=== PATIENT | male | born 1955 | race Caucasian/White ===

== ENCOUNTER → 2016-11-19 17:50 | Outpatient (CLI) | payer OTHER ==
[2016-03-15 05:53] VITALS: BMI 37.8
[~2016-11-19 17:50] MED LIST: ADIPEX-P37.5 M1 PO; AVAPRO300 MG PO; HYDROCODONE-APA1 TAB PO; NORVASC5 MG PO; PROTONIX40 MG PO; ZANTAC150 MG PO
[2016-11-22 05:15] LABS: TESTOSTERONE - FREE 4.2 pg/mL (6.6-18.1); TESTOSTERONE - SERUM 322 ng/dL (348-1197)
== END | disposition home or self-care (01) ==
LOC: D.LAB 17:50
PROVIDERS: Family Medicine
DX: Z00.00 Encounter for general adult medical examination without abnormal findings (principal)

== ENCOUNTER → 2017-05-20 17:40 | Outpatient (CLI) | payer OTHER ==
[2016-03-15 05:53] VITALS: BMI 37.8
== END | disposition home or self-care (01) ==
LOC: D.LABREF 17:40
DX: R53.81 Other malaise (principal)

== ENCOUNTER → 2019-01-27 18:58 | Outpatient (CLI) | payer OTHER ==
[2016-03-15 05:53] VITALS: BMI 37.8
[2019-02-03 03:08] LABS: RMSF IGM 0.34 index (0.00-0.89)
== END | disposition home or self-care (01) ==
LOC: D.LABREF 18:58
PROVIDERS: ATTEND Student in an Organized Health Care Education/Training Program
DX: A77.0 Spotted fever due to Rickettsia rickettsii (principal)

== ENCOUNTER → 2020-06-28 08:21 | Outpatient (CLI) | payer OTHER, MEDICARE ==
[2016-03-15 05:53] VITALS: BMI 37.8
== END | disposition home or self-care (01) ==
LOC: D.HCCARDIO 08:21
PROVIDERS: ATTEND Internal Medicine Cardiovascular Disease
DX: R06.09 Other forms of dyspnea (principal)

== ENCOUNTER 2020-07-06 07:17 | Day surgery (SDC) | payer OTHER, MEDICARE ==
[~2020-07-06] VITALS: Ht 180.3 cm; Wt 139.2 kg
--- NOTE | ~2020-07-06 | HEMODYNAMI ---
PATIENT:ESAU PLATA MEDICAL RECORD: [id number] : 53 LOCATION:[facility] ADMISSION DATE: 07/06/20 Generatedon:07/06/20209:51 Patient name: ESUA PALTA Patient #: [id number] SSN: [id number] : 1955 Date of study: 07/06/2020 Page: Of Hemodynamic Procedure Report Patient Data Patient Demographics Procedure consent was obtained First Name: ESAU Gender: Male Last Name: SHERLYN : 1955 Patient #: [id number] Age: 65 year(s) Race: SSN: [id number] Additional ID: [id number] Contact details [address]: [address] [place] [address] State: [place] City: [place] Zip code: [address] Past Medical History Allergies Allergen Reaction Date Comments Reported Other allergy 07/06/2020 NKDA Admission Admission Data Admission Date: 07/06/2020 Admission Time: 7:17 Arrival Date: 07/06/2020 Arrival Time: 0:00 Lab Results Lab Result Date: 07/06/2020 Lab Result Time: 0:00 Biochemistry Name Units Result Min Max BUN mg/dl 18 --(---*)-- 7 18 Creatinine mg/dl 1.5 --(----)-* 0.6 1.3 eGFR ml/min 50 *-(----)-- 90 120 NONAFRICAN CBC Name Units Result Min Max Hematocrit % 42.7 --(*---)-- 42 54 Hemoglobin g/dl 14.1 --(*---)-- 13.5 17.5 Procedure Procedure Types Cath Procedure Diagnostic Procedure LHC LHC w/Coronaries Procedure Description Procedure Date Procedure Date: 07/06/2020 Procedure Start Time: 9:31 Procedure End Time: 9:44 Procedure Staff Name Function Ester Bhatti RN Nurse Tomi Bennett MD Performing Physician Marily Adair RT Scrub Linda Eastman RT Monitor Indication Dyspnea Procedure Data Cath Procedure Fluoroscopy Diagnostic fluoroscopy Total fluoroscopy Time: 1.5 time: 1.5 min min Diagnostic fluoroscopy Total fluoroscopy dose: 759 dose: 759 mGy mGy Contrast Material Contrast Material Type Amount (ml) Isovue 300 53 Entry Location Entry Primary Successful Side Size Upsize Upsize Entry Closure Succes sful Closure Location (Fr) 1 (Fr) 2 (Fr) Remarks Device Remarks Femoral Right 5 Fr Exoseal artery Estimated blood loss: 5 ml Diagnostic catheters Device Type Used For End Catheter Placement MULTIPACK JL 4.0 5Fr Left Coronary catheter Angiography MULTIPACK 3DRC 5Fr Right Coronary catheter Angiography MULTIPACK Pigtail 5 Fr LV Angiography catheter Procedure Complications No complications Procedure Medications Medication Administration Route Dosage Oxygen 6 l/min Lidocaine 2% added to field 20 Heparin Flush Bag added to field 2 bags (1000units/500ml NS) 0.9% NaCl I.V. 100 ml/hr Versed I.V. 1 mg Fentanyl I.V. 50 mcg Versed I.V. 1 mg Fentanyl I.V. 50 mcg Versed I.V. 1 mg Hemodynamics Rest HGB: 14.1 (g/dl) Heart Rate: 48 (bpm) Pressure Samples Time Site Value (mmHg) Purpose Heart Use Rate(bpm) 9:39 LV 156/3,19 Snapshot 62 9:39 LV 160/5,19 Pullback 62 9:39 AO 157/83(115) Pullback 62 Gradients Valve Time Site 1 Site 2 Mean SEP/DFP Peak To Heart Use (mmHg) (sec/min) Peak Rate (mmHg) (bpm) Aortic 9:39 LV AO 7 20 3 62 160/5,19 157/83(115) Calculations Valve P-P Mean Valve Index Valve Source Name Gradient Area Flow (cm2) Aortic 3 7 3 7 Snapshots Pre Cath Intra NCS Post Cath Vital Signs Time Heart Resp SPO2 etCO2 NIBP (mmHg) Rhythm Pain Sedation Rate (ipm) (%) (mmHg) Status Level (bpm) 9:15:52 49 15 98 0 144/94(119) SB 0 (11) 10(A) , No pain 9:20:11 48 27 96 0 156/92(119) SB 0 (11) 10(A) , No pain 9:24:35 49 28 100 0 154/89(108) SB 0 (11) 10(A) , No pain 9:30:02 50 17 97 0 152/81(98) SB 0 (11) 9(A) , No pain 9:34:16 50 20 98 0 134/91(109) SB 0 (11) 9(A) , No pain 9:38:34 70 20 99 0 147/81(115) SB 0 (11) 9(A) , No pain 9:42:57 51 21 99 0 148/86(110) SB 0 (11) 10(A) , No pain Medications Time Medication Route Dose Verified Delivered Reason Notes Effec tiveness by by 9:10:46 Oxygen simple 6 Tomi Buffie used for pt mask l/min Donald Bhatti RN procedure wears cpap mask at home 9:10:54 Lidocaine 2% added 20ml Tomi Tomi for local to vial Donald Bennett MD anesthetic field 9:11:00 Heparin Flush added 2 Tomi Tomi used for Bag to bags Donald Bennett MD procedure (1000units/500ml field NS) 9:11:07 0.9% NaCl I.V. 100 Tomi Buffie Per ml/hr Donald Bhatti RN physician 9:26:02 Versed I.V. 1 mg Tomi Buffie for Donald Bhatti RN sedation 9:26:08 Fentanyl I.V. 50 Tomi Buffie for mcg Donald Bhatti RN sedation 9:30:55 Versed I.V. 1 mg Tomi Buffie for Donald Bhatti RN sedation 9:30:59 Fentanyl I.V. 50 Tomi Buffie for mcg Donald Bhatti RN sedation 9:35:03 Versed I.V. 1 mg Tomi Buffie for Donald Bhatti RN sedation Procedure Log Time Note 8:58:02 Informed consent obtained and on chart 8:59:05 Indication : Dyspnea 8:59:15 Procedure Status Elective Heart Cath (OP). 8:59:18 Ester Bhatti RN sent for patient. Start room use. 8:59:20 Time tracking: Regular hours (M-F 7:00 - 5:00) 8:59:26 Plan of Care:Hemodynamics will remain stable., Cardiac rhythm will remain stable., Comfort level will be maintained., Respiratory function will remain adequate., Patient/ family verbilizes understanding of procedure., Procedure tolerated without complication., Recovers from procedure without complications.. 8:59:33 Arrival Date: 07/06/2020 12:00:00 AM 9:04:24 Stress Test: yes; abnormal ANTERIOR AND INFERIOR 9:04:36 Patient received from Pre/Post Procedure Room to CCL 1 Alert and oriented. Tansferred to table in Supine position. 9:04:38 Warm blankets applied, and umang hugger turned on for patient comfort. 9:04:39 Correct patient and procedure confirmed by team. 9:04:40 ECG and BP/O2 sat monitors applied to patient. 9:04:50 H&P Date Dictated: 07/06/2020 H&P Addendum completed by physician on day of procedure. (MUST COMPLETE FOR ALL OUTPATIENTS), New H&P dictated by physician.. 9:04:52 Pre-op teaching completed and patient verbalized understanding. 9:04:52 Pre-procedure instructions explained to patient. 9:04:55 Family in patients room. 9:04:58 Patient NPO since Midnight. 9:05:11 Patient allergic to Other allergyNKDA 9:10:46 Oxygen 6 l/min simple mask was administered by Ester Bhatti RN; used for procedure; pt wears cpap mask at home Verbal order read back and verified. 9:10:54 Lidocaine 2% 20ml vial added to field was administered by Tomi Bennett MD; for local anesthetic; Verbal order read back and verified. 9:11:00 Heparin Flush Bag (1000units/500ml NS) 2 bags added to field was administered by Tomi Bennett MD; used for procedure; Verbal order read back and verified. 9:11:07 0.9% NaCl 100 ml/hr I.V. was administered by Ester Bhatti RN; Per physician; Verbal order read back and verified. 9:14:45 Vital chart was started 9:14:46 Baseline sample Acquired. 9:14:52 Rhythm: sinus rhythm 9:14:53 Full Disclosure recording started 9:14:54 9:14:58 Is the patient allergic to Iodine/contrast media? No. 9:15:03 Was the patient premedicated? Yes 9:15:13 Is patient on blood thinner?No 9:15:17 Patient diabetic? No. 9:15:22 ----Pre-sedation anethsthesia assessment.---- 9:15:28 Previous problem with sedation/anesthesia? No ? 9:15:31 Snore? Yes 9:15:33 Sleep apnea? Yes, SLEEPS WITH CPAP 9:15:35 Deviated septum? Unknown 9:15:37 Opens mouth fully? Yes 9:15:40 Sticks out tongue? Yes 9:15:45 Airway obstruction? No ? 9:15:50 Dentures? No ? 9:15:55 Pre procedure: right dorsailis pedis pulse 1+ Palpable, but thready & weak; easily obliterated 9:16:12 IV patent on arrival in left forearm with 0.9% NaCl at KVO. 9:16:23 Right groin area was prepped with chlora-prep and draped in sterile fashion 9:16:30 Use device set Femoral Dx 9:16:32 ACIST Syringe (40518) opened to sterile field. 9:16:33 Medline Cath Pack ([id number]) opened to sterile field. 9:16:33 Bag Decanter (2002S) opened to sterile field. 9:16:35 ACIST Hand Control (18188) opened to sterile field. 9:16:36 ACIST Manifold (91290) opened to sterile field. 9:16:37 DIAGNOSTIC Multipack 5Fr catheter set ([id number]) opened to sterile field. 9:16:39 Tegaderm 4 x 4 (1626W) opened to sterile field. 9:16:41 EMERALD Guide Wire (334-080) opened to sterile field. 9:16:41 SHEATH 5FR [place] ([id number]) opened to sterile field. 9:22:46 Lab Result : Hemoglobin 14.1 g/dl 9::46 Lab Result : Hematocrit 42.7 % 9:22:46 Lab Result : eGFR NONAFRICAN 50 ml/min 9:22:46 Lab Result : BUN 18 mg/dl 9:22:46 Lab Result : Creatinine 1.5 mg/dl 9:22:54 Lab results completed and on chart. 9:22:59 Alarms reviewed by R. N. 9:23:00 Sharps counted by scrub and verified by R.N. 9:24:47 Risk of Mortality: 0.1 9:24:50 Risk of blood transfusion: 0.1 9:24:54 Risk of ARIEL: 0.7 9:25:01 Physician arrived 9:25:02 --------ALL STOP TIME OUT------ 9:25:03 Final Timeout: patient, procedure, and site verified with staff and physician. All members of the team are in agreement. 9:25:05 Right groin site verified by team. 9:25:11 Fire Safety Assessment: A--An alcohol-based skin anteseptic being used preoperatively., C--Open oxygen or nitrous oxide is being used., D--An ESU, laser, or fiber-optic light is being used. 9:25:15 Physical assessment completed. ASA score P 2 - A patient with mild systemic disease as per Tomi Bennett MD. 9:25:20 3a) 45-59 Moderately reduced kidney function. 9:25:26 Maximum allowable contrast dose (3.7 X eGFR X 0.75)139 ml. 9:25:33 Sedation plan: IV Moderate Sedation Medication:Versed, Fentanyl 9:26:02 Versed 1 mg I.V. was administered by Ester Bhatti RN; for sedation; Verbal order read back and verified. 9:26:08 Fentanyl 50 mcg I.V. was administered by Ester Bhatti RN; for sedation; Verbal order read back and verified. 9:29:52 Zero performed for pressure channel P1 9:30:55 Versed 1 mg I.V. was administered by Ester Bhatti RN; for sedation; Verbal order read back and verified. 9:30:59 Fentanyl 50 mcg I.V. was administered by Ester Bhatti RN; for sedation; Verbal order read back and verified. 9:31:14 Procedure started. 9::54 Local anesthetic to right femoral artery with Lidocaine 2% by Tomi Bennett MD.INITIAL ACCESS ONLY 9:33:51 A 5 Fr sheath was inserted into the Right Femoral artery 9:34:40 A MULTIPACK JL 4.0 5Fr catheter was advanced over the wire and used for Left Coronary Angiography. 9:35:03 Versed 1 mg I.V. was administered by Ester Bhatti RN; for sedation; Verbal order read back and verified. 9:35:28 LCA angiography performed. 9:35:51 Injector settings: Ml/sec: 3, Volume: 6, 9:36:29 Catheter removed. 9:36:37 A MULTIPACK 3DRC 5Fr catheter was advanced over the wire and used for Right Coronary Angiography. 9:37:22 RCA angiography performed. 9:37:35 Injector settings: Ml/sec: 3, Volume: 6, 9:37:48 Catheter removed. 9:37:55 A MULTIPACK Pigtail 5 Fr catheter was advanced over the wire and used for LV Angiography. 9:39:12 LV gram done using PRAKASH 9:39:17 Injector settings: Ml/sec: 5, Volume: 15, 9:39:39 EF : 60 % 9:39:41 LV hemodynamics recorded. 9:39:43 Catheter removed. 9:39:46 EXOSEAL 5Fr (EX500) opened to sterile field. 9:39:55 Contrast amount:Isovue 300 53ml. 9:40:03 Fluoroscopy time 01.50 minutes. 9:40:08 Flurop Dose total: 759 9:40:09 Fluoroscopy dose: 759 mGy 9:40:17 Dose Area Product 77694 mGy/cm. 9:40:28 Sheath removed intact; hemostasis achieved with Exoseal to the Right Femoral artery. 9:41:01 Procedure ended.(Physican Out) 9:41:08 Maximum allowable dose exceeded? No. 9:41:10 Sharps counted by scrub and verified by R.N. 9:41:17 Post-op/insertion site Right Femoral artery dressed using a 4 x 4 and Tegaderm. 9:41:22 Post-procedure physical assessment completed. ASA score P 2 - A patient with mild systemic disease as per Tomi Bennett MD. 9:41:32 Post procedure rhythm: sinus rhythm 9:42:07 Estimated blood loss: 5 ml 9:42:12 Post procedure instruction explained to patient.Patient verbalizes understanding. 9:42:13 Patient needs reinforcement of post procedure teaching. 9:42:56 Procedure and supply charges have been captured, reviewed, submitted and are correct. 9:43:22 Procedure Complication : No complications 9:43:28 Vital chart was stopped 9:43:31 See physician's report for complete and final results. 9:43:33 Report given to Pre/Post Procedure Room. 9:43:36 Patient transfered to Pre/Post Procedure Room with Stretcher. 9:44:12 Full Disclosure recording stopped 9:44:12 Procedure ended. 9:44:15 End room use (Document Last) Device Usage Item Name Manufacture Quantity Catalog Hospital Part Current Minimal L ot# / Number Charge Number Stock Stock Serial# Code ACIST Acist 1 76240 397807 [id number] [id number] 20 Syringe Medical (69212) Systems Inc Bag Microtek 1 809091 71978 078041 5 Decanter Medical Inc. () Medline Medline 1 [id number] 769317 94187 794290 5 Cath Pack ([id number]) ACIST Hand Acist 1 27084 729707 635745 950281 5 Control Medical (01235) Systems Inc ACIST Acist 1 68408 719736 506186 243928 5 Manifold Medical (28170) Systems Inc DIAGNOSTIC Cardinal 1 [id number] 538329 19459 658881 30 Multipack Health 5Fr catheter set (UM1340) Tegaderm 4 3M 1 1626W 734361 561187 622195 5 x 4 (1626W) SHEATH 5FR Terumo 1 EOI944 177102 844108 031649 5 [place] (KKI407) EMERALD Cardinal 1 502-455 638031 341575 780252 5 Guide Wire Health (502-455) MULTIPACK Cardinal 1 145319 5 JL 4.0 5Fr Health catheter MULTIPACK Cardinal 1 845364 5 3DRC 5Fr Health catheter MULTIPACK Cardinal 1 230684 5 Pigtail 5 Health Fr catheter EXOSEAL 5Fr Cardinal 1 EX500 157120 635107 [id number] 10 (EX500) Health Signature Audit [place] Stage Time Signature Unsigned Intra-Procedure 07/06/2020 Linda 9:44:40 AM Jaren RT(R) (CV) Intra-Procedure 07/06/2020 Ester Bhatti RN 9:45:18 AM Intra-Procedure 07/06/2020 Tomi Bennett MD 9:45:49 AM 07/06/2020 9:50:23 AM Intra-Procedure 07/06/2020 Tomi Bennett MD 9:51:37 [place] [address]
[2020-07-06] MEDS ORDERED: NORVASC10 MG PO (08:12)
[2020-07-06] MEDS ORDERED: HYDROCHLOROTH12.5 M1 PO (08:13)
[2020-07-06 08:34] VITALS: BP 146/81; Ht 180.3 cm; Wt 139.2 kg
[2020-07-06 08:44] LABS: BASOPHILS 0.2 % (0-2); EOSINOPHILS 2.1 % (0-7); HEMATOCRIT 42.7 % (42.0-54.0); HEMOGLOBIN 14.1 g/dL (13.5-17.5); IMMATURE GRANULOCYTES 0.2 % (0-5); LYMPHOCYTES 21.7 % (15-50); MCV 87.7 fL (80.0-100.0); MEAN PLATELET VOLUME 10.9 fL (7.4-10.4); MONOCYTES 12.5 % (2-11); NEUTROPHILS 63.3 % (40-80); PLATELET COUNT 204 10x3/uL (130-400); RBC 4.87 10x6/uL (4.20-6.10); RDW 14.3 % (11.5-14.5); WBC 5.2 10x3/uL (4.8-10.8)
[2020-07-06 09:00] LABS: CALCIUM 9.1 mg/dL (8.5-10.1); CARBON DIOXIDE 26.7 mmol/L (21.0-32.0); CHOL - HDL RATIO 3.7 ratio (2.3-4.9); CREATININE - SERUM 1.5 mg/dL (0.6-1.3); LDL-HDL RATIO 2.5 ratio (1.5-3.5); POTASSIUM - SERUM 3.7 mmol/L (3.5-5.1)
--- NOTE | 2020-07-06 09:55 | NUR ---
PT REC'D TO ROOM 5 VIA STRETCHER FROM GRAIN ELEVATOR CLERK. MONITORS ESTAB. AT BS. SEE EXPERIMENTAL MECHANIC OUTBOARD MOTORS. ALARMS ON AND C/L IN REACH.
--- NOTE | 2020-07-06 10:04 | NUR ---
DR. JACK IN TO UPDATE PT AND HIS .
--- NOTE | 2020-07-06 10:10 | NUR ---
R GROIN SITE SOFT, NO S/S BLEEDING OR HEMATOMA. R LEG/FOOT WARM WITH PALP PULSES AND BRISK CAP REFILL. VSS. PT DENIES PAIN OR NEEDS. ALARMS ON AND C/L IN REACH.
--- NOTE | 2020-07-06 10:40 | NUR ---
R GROIN SITE SOFT, NO S/S BLEEDING OR SWELLING. PULSES EASILY PALP, BRISK CAP REFILL. TOLERATING SIPS. VSS. C/L IN REACH.
--- NOTE | 2020-07-06 10:55 | NUR ---
R GROIN SITE SOFT, NO S/S BLEEDING OR HEMATOMA. PULSES PALP. ELEVATING HEAD GRADUALLY. AT BS. C/L IN REACH.
--- NOTE | 2020-07-06 11:09 | NUR ---
R GROIN SITE C/D/I. HOB UP, SANDWICH TRAY AND COFFEE PROVIDED. ALARMS ON AND C/L IN REACH.
--- NOTE | 2020-07-06 11:25 | NUR ---
PT TOLERATED EATING, NO N/V. PT VOIDED 500CC CLEAR, YELLOW URINE IN URINAL. R GROIN SITE C/D/I, NO S/S BLEEDING OR HEMATOMA. C/L IN REACH.
--- NOTE | 2020-07-06 11:50 | NUR ---
ALL DISCHARGE TEACHING COMPLETED WITH PT AND HIS , INCLUDING RESTRICTIONS, MEDS AND F/U APPT. BOTH VERBALIZE UNDERSTANDING.
--- NOTE | 2020-07-06 12:01 | NUR ---
R GROIN SITE SOFT, C/D/I, NO S/S BLEEDING OR HEMATOMA. PIV D/C'D INTACT, DSG APPLIED. PT ALLOWED UP TO GET DRESSED, ASSISTING.
--- NOTE | 2020-07-06 12:10 | NUR ---
PT UP TO BR INDEPENDENTLY, THEN D/C'D VIA WC TO PRIVATE VEHICLE WITH ALL PAPER WORK AND BELONGINGS.
== END 2020-07-06 12:10 | disposition home or self-care (01) ==
LOC: D.CATH 07:17
PROVIDERS: ATTEND Internal Medicine Cardiovascular Disease
DX: I20.9 Angina pectoris, unspecified (principal); R94.39 Abnormal result of other cardiovascular function study; R06.00 Dyspnea, unspecified; I10 Essential (primary) hypertension; R07.9 Chest pain, unspecified